=== PATIENT | male | born 1940 | race Caucasian/White ===

== ENCOUNTER 2021-10-28 15:39 | Inpatient (IN) | payer MEDICARE, BC ==
[~2021-10-28 15:39] MED LIST: Iopamidol 370 76% 100 ML VIAL ONE
[2021-10-28] MEDS ORDERED: Heparin 10,000 UNITS/ 10 ML VIAL ONE ×2 (15:52→15:53)
[2021-10-28 15:56] LABS: #Eosinphils 0.2 thou/uL (0.0-0.7); #Lymphocytes 3.6 thou/uL (1.20-3.40); #Monocytes 0.7 thou/uL (0.11-0.59); #Neutrophils 4.5 thou/uL (1.40-6.50); %Basophils 0.5 % (0.0-1.0); %Lymphocytes 39.7 % (21.0-51.0); %Monocytes 7.9 % (0.0-10.0); %Neutrophils 49.9 % (42.0-75.0); Hemoglobin 15.1 g/dL (14.0-18.0); Mean Corpuscular Hemoglobin 34.5 pg (27.0-31.0); Mean Platelet Volume 7.4 fL (7.4-10.4); Platelet Count 174 thou/uL (130-400); RBC Distribution Width 12.8 % (11.5-14.5); Red Blood Cell (RBC) Count 4.37 mill/uL (4.70-6.10); White Blood Cell (WBC) Count 8.9 thou/uL (4.8-10.8)
[2021-10-28] MEDS ORDERED: Aspirin 300 MG Suppository ONE (16:00)
[2021-10-28 16:09] LABS: Bacteria/HPF None Seen HPF (None Seen); Bilirubin Negative (Negative); Blood, Urine 1+ (Negative); Clarity Clear (Clear); Glucose, Urine (Dipstick) 100 mg/dL (Negative); Ketone, Urine Negative (Negative); Leukocyte Negative Leu/uL (Negative); Nitrite Negative (Negative); Protein, Urine (Dipstick) 100 mg/dL (Neg-Trace); Specific Gravity, Urine 1.018 (1.002-1.036); Squamous Epithelial 0-3 HPF (0-3); Urobilinogen 3 mg/dL (Less than 2); WBC/HPF 0-3 HPF (0-3); pH, Urine 6.5 (5.0-9.0)
[2021-10-28 16:18] LABS: ALT (SGPT) 80 U/L (8-55); AST (SGOT) 99 U/L (5-34); Albumin 3.9 g/dL (3.4-4.8); Alkaline Phosphatase 88 U/L (40-110); Anion Gap 17 mmol/L (10-20); BUN (Urea Nitrogen) 20 mg/dL (8.4-25.7); Bilirubin, Total 1.2 mg/dL (0.2-1.2); Calc. Creatinine Clearance 0 mL/min (70-130); Calcium 8.1 mg/dL (7.8-10.44); Carbon Dioxide 18 mmol/L (23-31); Chloride 108 mmol/L (98-107); Globulin 3.1 g/dL (2.4-3.5); Glucose 237 mg/dL (83-110); Lipase 24 U/L (8-78); Potassium 3.2 mmol/L (3.5-5.1); Sodium 140 mmol/L (136-145)
[2021-10-28] MEDS ORDERED: Ondansetron PF 4 MG/2 ML Vial ONE (16:19)
[2021-10-28] MEDS ORDERED: Adenosine 6 MG/2 ML VIAL ONE (16:19)
[2021-10-28] MEDS ORDERED: Nitroglycerin 100MG/250ML BOT 0 ML ONE (16:20)
[2021-10-28] MEDS ORDERED: Nitroglycerin 100MG/250ML BOT 250 ML ONE (16:40)
[2021-10-28] MEDS ORDERED: Furosemide 40 MG/4 ML VIAL ONE (16:40)
[2021-10-28] MEDS ORDERED: Electrolyte Replacement Protocol 1 EACH FS PRN (16:44)
[2021-10-28] MEDS ORDERED: Ventilator Sedation Protocol 1 EACH FS ONE (16:44)
[2021-10-28] MEDS ORDERED: Nitroglycerin 2% Ointment 1 INCH/1 GM Packet ONE (17:04)
[2021-10-28] MEDS ORDERED: Midazolam HCl 2 mg/2 ml Vial ONE (17:12)
[2021-10-28 17:26] LABS: Actual Bicarbonate (HCO3a) 20.6 mEq/L (22-28); Base Excess (BEa) -4.7 mEq/L (-2.0 to +3.0); CO2 Tension 39.1 mmHg (35.0-45.0); Calcium, Ionized (arterial) 1.03 mmol/L (1.12-1.30); Hemoglobin (Hb) 15.6 g/dL (14.0-18.0); O2 Tension (PaO2), arterial 96.5 mmHg (> 60.0); Potassium - ABG Lab 2.99 mmol/L (3.70-5.30); pH, Arterial 7.34 (7.35-7.45)
[2021-10-28] MEDS ORDERED: DISCONTINUE PREVIOUS NARCOTIC PAIN MEDICATIONS AND BENZODIAZEPINES FS SCH (17:30)
[2021-10-28] MEDS ORDERED: Potassium Chloride 20 MEQ TAB PO SCH (17:30)
[2021-10-28] MEDS ORDERED: Propofol BOLUS 1,000 MG/100 ML VIAL IV PRN (17:30)
[2021-10-28] MEDS ORDERED: Fentanyl BOLUS 250 ML IVPB PRN (17:30)
[2021-10-28] MEDS ORDERED: Morphine 4 MG/ML VIAL SLOW IVP PRN (17:30)
[2021-10-28] MEDS: Propofol 1,000 MG/100 ML VIAL IV PRN ×2 (17:30→22:27)
[2021-10-28 17:33] LABS: ALV-art Gradient 211.125 mmHg (0-20); Puncture Site Arterial Line
[2021-10-28] MEDS: Lorazepam 2 MG/ML VIAL SLOW IVP PRN ×3 (18:13→20:43)
[2021-10-28 18:26] LABS: Potassium 2.9 mmol/L (3.5-5.1)
[2021-10-28] MEDS: Sodium Chloride 0.9% 1,000 ML IV SCH (18:30)
[2021-10-28] MEDS: fentaNYL Citrate-0.9 % NaCl/PF 100 ML IV SCH (18:42)
[2021-10-28 19:00] LABS: Troponin I 0.069 ng/mL (< 0.028)
[2021-10-28] MEDS ORDERED: DO NOT USE PRE-EXISTING LYTE PROTOCOL FS SCH (19:30)
[2021-10-28] MEDS ORDERED: Heparin 25,000 units/D5W 500 ML IV SCH (20:00)
[2021-10-28] MEDS ORDERED: Amiodarone In Dextrose 200 ML IVPB SCH (20:00)
[2021-10-28] MEDS ORDERED: Heparin 10,000 UNITS/ 10 ML VIAL SLOW IVP SCH (20:00)
[2021-10-28 20:31] LABS: #Monocytes 1.1 thou/uL (0.11-0.59); #Neutrophils 13.3 thou/uL (1.40-6.50); %Basophils 0.1 % (0.0-1.0); %Eosinophils 0.1 % (0.0-10.0); %Lymphocytes 6.4 % (21.0-51.0); %Neutrophils 86.4 % (42.0-75.0); Hemoglobin 15.4 g/dL (14.0-18.0); Mean Corpuscular HGB CONC 34.4 g/dL (32.0-36.0); Mean Corpuscular Hemoglobin 34.2 pg (27.0-31.0); Mean Corpuscular Volume 99.5 fL (78.0-98.0); Mean Platelet Volume 7.1 fL (7.4-10.4); Platelet Count 169 thou/uL (130-400); RBC Distribution Width 12.7 % (11.5-14.5); Red Blood Cell (RBC) Count 4.51 mill/uL (4.70-6.10); White Blood Cell (WBC) Count 15.3 thou/uL (4.8-10.8)
[2021-10-28 20:39] LABS: INR-International Normal Ratio 1.1; Prothrombin Time 14.6 sec (12.0-14.7)
[2021-10-28] MEDS: Famotidine/PF 20 mg/2ml Vial SLOW IVP SCH (20:41)
[2021-10-28] MEDS: Vecuronium 10 MG VIAL IV PRN (20:43)
[2021-10-28 20:51] LABS: Anion Gap 13 mmol/L (10-20); BUN (Urea Nitrogen) 20 mg/dL (8.4-25.7); Calc. Creatinine Clearance 52 mL/min (70-130); Calcium 8.2 mg/dL (7.8-10.44); Carbon Dioxide 23 mmol/L (23-31); Chloride 106 mmol/L (98-107); Glucose 221 mg/dL (83-110); Magnesium 1.9 mg/dL (1.6-2.6); Potassium 3.3 mmol/L (3.5-5.1); Sodium 139 mmol/L (136-145)
[2021-10-28 20:54] LABS: PTT 164.4 sec (22.9-36.1)
[2021-10-28] MEDS: Nitroglycerin 2% Ointment 1 INCH/1 GM Packet TOP SCH (21:34)
[2021-10-28] MEDS: Potassium Chloride 20 MEQ in Premix Bag 1 BAG IVPB SCH ×2 (21:46→22:23)
[2021-10-28 22:01] LABS: Troponin I 0.475 ng/mL (< 0.028)
[2021-10-29 01:09] LABS: Bilirubin Negative (Negative); Blood, Urine Negative (Negative); Clarity Clear (Clear); Glucose, Urine (Dipstick) Normal (Negative); Ketone, Urine Negative (Negative); Leukocyte Negative Leu/uL (Negative); Nitrite Negative (Negative); Protein, Urine (Dipstick) Negative (Neg-Trace); Specific Gravity, Urine 1.018 (1.002-1.036); Squamous Epithelial None Seen HPF (0-3); Urobilinogen Normal mg/dL (Less than 2); pH, Urine 5.5 (5.0-9.0)
[2021-10-29 01:11] LABS: Bacteria/HPF None Seen HPF (None Seen); RBC/HPF 0-3 HPF (0-3); WBC/HPF 0-3 HPF (0-3)
[2021-10-29 01:31] LABS: INR-International Normal Ratio 1.1; PTT 52.7 sec (22.9-36.1)
[2021-10-29 01:35] LABS: Troponin I 0.598 ng/mL (< 0.028)
[2021-10-29 01:38] LABS: #Lymphocytes 1.2 thou/uL (1.20-3.40); #Monocytes 0.7 thou/uL (0.11-0.59); #Neutrophils 8.3 thou/uL (1.40-6.50); %Basophils 0.2 % (0.0-1.0); %Eosinophils 0.1 % (0.0-10.0); %Monocytes 6.4 % (0.0-10.0); %Neutrophils 81.3 % (42.0-75.0); Hemoglobin 14.5 g/dL (14.0-18.0); Mean Corpuscular HGB CONC 34.4 g/dL (32.0-36.0); Mean Corpuscular Hemoglobin 34.4 pg (27.0-31.0); Mean Corpuscular Volume 99.9 fL (78.0-98.0); Mean Platelet Volume 7.9 fL (7.4-10.4); Platelet Count 151 thou/uL (130-400); RBC Distribution Width 12.7 % (11.5-14.5); Red Blood Cell (RBC) Count 4.21 mill/uL (4.70-6.10); White Blood Cell (WBC) Count 10.1 thou/uL (4.8-10.8)
[2021-10-29 02:29] LABS: Anion Gap 15 mmol/L (10-20); BUN (Urea Nitrogen) 20 mg/dL (8.4-25.7); Calc. Creatinine Clearance 51 mL/min (70-130); Calcium 8.2 mg/dL (7.8-10.44); Carbon Dioxide 23 mmol/L (23-31); Chloride 106 mmol/L (98-107); Glucose 158 mg/dL (83-110); Phosphorus 2.6 mg/dL (2.3-4.7); Potassium 3.5 mmol/L (3.5-5.1); Sodium 140 mmol/L (136-145)
[2021-10-29] MEDS: Sodium Chloride 0.9% 1,000 ML IV SCH ×2 (04:30→18:23)
[2021-10-29] MEDS: Propofol 1,000 MG/100 ML VIAL IV PRN ×3 (04:33→19:22)
[2021-10-29] MEDS: Nitroglycerin 2% Ointment 1 INCH/1 GM Packet TOP SCH ×3 (05:01→22:14)
[2021-10-29] MEDS: Lorazepam 2 MG/ML VIAL SLOW IVP PRN ×3 (05:53→12:10)
[2021-10-29] MEDS: Vecuronium 10 MG VIAL IV PRN (05:53)
[2021-10-29] MEDS: fentaNYL Citrate-0.9 % NaCl/PF 100 ML IV SCH (06:15)
[2021-10-29 06:41] LABS: Actual Bicarbonate (HCO3a) 21.5 mEq/L (22-28); Base Excess (BEa) -2.5 mEq/L (-2.0 to +3.0); CO2 Tension 35.2 mmHg (35.0-45.0); Calcium, Ionized (arterial) 1.08 mmol/L (1.12-1.30); Carboxyhemoglobin (COHb) 0.6 gm% (0.0-3.0); Hemoglobin (Hb) 14.5 g/dL (14.0-18.0); O2 Tension (PaO2), arterial 80.7 mmHg (> 60.0); Potassium - ABG Lab 3.06 mmol/L (3.70-5.30)
[2021-10-29 06:50] LABS: Puncture Site Arterial Line
[2021-10-29 08:50] LABS: INR-International Normal Ratio 1.2; Prothrombin Time 15.2 sec (12.0-14.7)
[2021-10-29 08:51] LABS: PTT 96.3 sec (22.9-36.1)
[2021-10-29 09:06] LABS: Critical Call Chem Troponin I RESULT DECREASING
[2021-10-29 09:07] LABS: Anion Gap 13 mmol/L (10-20); BUN (Urea Nitrogen) 19 mg/dL (8.4-25.7); Calc. Creatinine Clearance 56 mL/min (70-130); Calcium 7.9 mg/dL (7.8-10.44); Carbon Dioxide 23 mmol/L (23-31); Chloride 106 mmol/L (98-107); Glucose 137 mg/dL (83-110); Magnesium 1.9 mg/dL (1.6-2.6); Phosphorus 4.1 mg/dL (2.3-4.7); Potassium 3.3 mmol/L (3.5-5.1); Sodium 139 mmol/L (136-145)
[2021-10-29 09:27] LABS: CKMB 8.1 ng/mL (0-6.6)
[2021-10-29] MEDS: Aspirin 81 mg Enteric Coated Tablet PO SCH (09:36)
[2021-10-29] MEDS ORDERED: Potassium Chloride 40 MEQ, Magnesium Sulfate 2 GM in Sodium Chloride 0.9% 250 ML 250 ML IVPB SCH (10:00)
[2021-10-29 10:27] LABS: #Eosinphils 0.1 thou/uL (0.0-0.7); #Lymphocytes 1.9 thou/uL (1.20-3.40); #Monocytes 0.8 thou/uL (0.11-0.59); #Neutrophils 6.2 thou/uL (1.40-6.50); %Basophils 0.4 % (0.0-1.0); %Eosinophils 0.8 % (0.0-10.0); %Lymphocytes 20.9 % (21.0-51.0); %Monocytes 9.4 % (0.0-10.0); %Neutrophils 68.6 % (42.0-75.0); Hemoglobin 14.5 g/dL (14.0-18.0); Mean Corpuscular HGB CONC 32.9 g/dL (32.0-36.0); Mean Platelet Volume 7.4 fL (7.4-10.4); Platelet Count 141 thou/uL (130-400); RBC Distribution Width 12.7 % (11.5-14.5); Red Blood Cell (RBC) Count 4.26 mill/uL (4.70-6.10)
[2021-10-29] MEDS: Famotidine/PF 20 mg/2ml Vial SLOW IVP SCH ×2 (10:40→20:33)
[2021-10-29 14:26] LABS: #Lymphocytes 0.9 thou/uL (1.20-3.40); #Monocytes 0.7 thou/uL (0.11-0.59); #Neutrophils 6.9 thou/uL (1.40-6.50); %Basophils 0.3 % (0.0-1.0); %Eosinophils 0.1 % (0.0-10.0); %Lymphocytes 10.1 % (21.0-51.0); %Monocytes 8.7 % (0.0-10.0); %Neutrophils 80.8 % (42.0-75.0); Hemoglobin 14.6 g/dL (14.0-18.0); Mean Corpuscular HGB CONC 33.2 g/dL (32.0-36.0); Mean Corpuscular Hemoglobin 34.4 pg (27.0-31.0); Mean Platelet Volume 7.7 fL (7.4-10.4); Platelet Count 128 thou/uL (130-400); RBC Distribution Width 12.6 % (11.5-14.5); Red Blood Cell (RBC) Count 4.26 mill/uL (4.70-6.10); White Blood Cell (WBC) Count 8.5 thou/uL (4.8-10.8)
[2021-10-29 14:34] LABS: INR-International Normal Ratio 1.1; Prothrombin Time 14.4 sec (12.0-14.7)
[2021-10-29 14:37] LABS: Anion Gap 13 mmol/L (10-20); BUN (Urea Nitrogen) 19 mg/dL (8.4-25.7); Calc. Creatinine Clearance 62 mL/min (70-130); Carbon Dioxide 20 mmol/L (23-31); Chloride 110 mmol/L (98-107); Glucose 124 mg/dL (83-110); Magnesium 2.5 mg/dL (1.6-2.6); Phosphorus 3.9 mg/dL (2.3-4.7); Potassium 4.1 mmol/L (3.5-5.1); Sodium 139 mmol/L (136-145)
[2021-10-29 14:43] LABS: PTT 126.2 sec (22.9-36.1)
[2021-10-29] MEDS ORDERED: Sodium Chloride 0.9% 500 ML IV SCH (17:15)
[2021-10-29 19:20] LABS: Anion Gap 13 mmol/L (10-20); BUN (Urea Nitrogen) 21 mg/dL (8.4-25.7); Calc. Creatinine Clearance 69 mL/min (70-130); Calcium 7.8 mg/dL (7.8-10.44); Carbon Dioxide 19 mmol/L (23-31); Chloride 112 mmol/L (98-107); Glucose 116 mg/dL (83-110); Potassium 3.9 mmol/L (3.5-5.1); Sodium 140 mmol/L (136-145)
[2021-10-29 20:18] LABS: INR-International Normal Ratio 1.2; Prothrombin Time 15.1 sec (12.0-14.7)
[2021-10-29 20:30] LABS: #Basophils 0.1 thou/uL (0.0-0.2); #Lymphocytes 0.9 thou/uL (1.20-3.40); #Monocytes 0.6 thou/uL (0.11-0.59); #Neutrophils 5.4 thou/uL (1.40-6.50); %Basophils 2.1 % (0.0-1.0); %Eosinophils 0.2 % (0.0-10.0); %Lymphocytes 12.4 % (21.0-51.0); %Monocytes 8.8 % (0.0-10.0); %Neutrophils 76.6 % (42.0-75.0); Hemoglobin 13.1 g/dL (14.0-18.0); Mean Corpuscular HGB CONC 34.4 g/dL (32.0-36.0); Mean Corpuscular Hemoglobin 34.4 pg (27.0-31.0); Mean Corpuscular Volume 99.8 fL (78.0-98.0); Mean Platelet Volume 7.4 fL (7.4-10.4); Platelet Count 116 thou/uL (130-400); RBC Distribution Width 12.6 % (11.5-14.5); Red Blood Cell (RBC) Count 3.81 mill/uL (4.70-6.10)
[2021-10-29 20:35] LABS: PTT 168.7 sec (22.9-36.1)
[2021-10-29 21:10] LABS: CKMB 9.3 ng/mL (0-6.6)
[2021-10-30] MEDS: Propofol 1,000 MG/100 ML VIAL IV PRN (03:13)
[2021-10-30] MEDS: fentaNYL Citrate-0.9 % NaCl/PF 100 ML IV SCH (03:14)
[2021-10-30 05:17] LABS: Anion Gap 12 mmol/L (10-20); BUN (Urea Nitrogen) 22 mg/dL (8.4-25.7); Calc. Creatinine Clearance 54 mL/min (70-130); Calcium 7.9 mg/dL (7.8-10.44); Carbon Dioxide 20 mmol/L (23-31); Chloride 110 mmol/L (98-107); Glucose 127 mg/dL (83-110); Potassium 3.4 mmol/L (3.5-5.1); Sodium 139 mmol/L (136-145)
[2021-10-30 06:02] LABS: #Lymphocytes 0.8 thou/uL (1.20-3.40); #Monocytes 0.6 thou/uL (0.11-0.59); #Neutrophils 6.1 thou/uL (1.40-6.50); %Basophils 0.1 % (0.0-1.0); %Eosinophils 0.3 % (0.0-10.0); %Lymphocytes 10.9 % (21.0-51.0); %Monocytes 8.4 % (0.0-10.0); %Neutrophils 80.4 % (42.0-75.0); Hemoglobin 13.5 g/dL (14.0-18.0); Mean Corpuscular HGB CONC 33.3 g/dL (32.0-36.0); Mean Corpuscular Hemoglobin 34.5 pg (27.0-31.0); Mean Platelet Volume 8.1 fL (7.4-10.4); Platelet Count 128 thou/uL (130-400); RBC Distribution Width 12.8 % (11.5-14.5); White Blood Cell (WBC) Count 7.5 thou/uL (4.8-10.8)
[2021-10-30] MEDS: Nitroglycerin 2% Ointment 1 INCH/1 GM Packet TOP SCH ×3 (06:29→22:18)
[2021-10-30] MEDS: Potassium Chloride 20 MEQ in Premix Bag 1 BAG IVPB SCH ×2 (06:30→08:58)
[2021-10-30 06:58] LABS: Actual Bicarbonate (HCO3a) 20.2 mEq/L (22-28); Base Excess (BEa) -4.2 mEq/L (-2.0 to +3.0); Carboxyhemoglobin (COHb) 0.7 gm% (0.0-3.0); Hemoglobin (Hb) 13.6 g/dL (14.0-18.0); O2 Tension (PaO2), arterial 88.6 mmHg (> 60.0); Potassium - ABG Lab 3.57 mmol/L (3.70-5.30); pH, Arterial 7.38 (7.35-7.45)
[2021-10-30 07:01] LABS: Puncture Site Arterial Line
[2021-10-30] MEDS: Carvedilol 3.125 MG TAB PO SCH ×2 (08:59→16:33)
[2021-10-30] MEDS: Sodium Chloride 0.9% 1,000 ML IV SCH ×2 (08:59→23:22)
[2021-10-30] MEDS: Famotidine/PF 20 mg/2ml Vial SLOW IVP SCH ×2 (08:59→21:55)
[2021-10-30] MEDS: Aspirin 81 mg Enteric Coated Tablet PO SCH (08:59)
[2021-10-30 09:24] LABS: SARS-CoV-2 NAA Rapid Test Not Detected (NotDetected)
[2021-10-30] MEDS: cefTRIAXone\\ROCEPHIN 2 GM in Sodium Chloride 0.9% 100 ML IVPB SCH (12:14)
[2021-10-30] MEDS: Acetaminophen 650 MG/20.3 ML UDCUP PER TUBE PRN (12:14)
[2021-10-30] MEDS: Atorvastatin Calcium 40 MG TAB PO SCH (21:55)
[2021-10-30] MEDS: Enoxaparin Sodium 40 MG/0.4 ML SYRINGE SC SCH (21:55)
[2021-10-31 04:16] LABS: #Lymphocytes 1.2 thou/uL (1.20-3.40); #Monocytes 0.7 thou/uL (0.11-0.59); #Neutrophils 5.2 thou/uL (1.40-6.50); %Basophils 0.2 % (0.0-1.0); %Eosinophils 0.3 % (0.0-10.0); %Lymphocytes 17.2 % (21.0-51.0); %Monocytes 9.3 % (0.0-10.0); Mean Corpuscular HGB CONC 33.7 g/dL (32.0-36.0); Mean Corpuscular Hemoglobin 34.5 pg (27.0-31.0); Mean Platelet Volume 8.1 fL (7.4-10.4); Platelet Count 114 thou/uL (130-400); RBC Distribution Width 12.9 % (11.5-14.5); Red Blood Cell (RBC) Count 3.49 mill/uL (4.70-6.10); White Blood Cell (WBC) Count 7.1 thou/uL (4.8-10.8)
[2021-10-31 04:28] LABS: Anion Gap 11 mmol/L (10-20); BUN (Urea Nitrogen) 33 mg/dL (8.4-25.7); Calc. Creatinine Clearance 42 mL/min (70-130); Carbon Dioxide 23 mmol/L (23-31); Chloride 108 mmol/L (98-107); Glucose 136 mg/dL (83-110); Potassium 4.1 mmol/L (3.5-5.1); Sodium 138 mmol/L (136-145)
[2021-10-31] MEDS: Nitroglycerin 2% Ointment 1 INCH/1 GM Packet TOP SCH ×3 (05:42→21:39)
[2021-10-31 07:43] LABS: Actual Bicarbonate (HCO3a) 19.3 mEq/L (22-28); Base Excess (BEa) -4.5 mEq/L (-2.0 to +3.0); CO2 Tension 31.7 mmHg (35.0-45.0); Calcium, Ionized (arterial) 1.12 mmol/L (1.12-1.30); Carboxyhemoglobin (COHb) 0.6 gm% (0.0-3.0); Hemoglobin (Hb) 12.5 g/dL (14.0-18.0); O2 Tension (PaO2), arterial 91.4 mmHg (> 60.0); Potassium - ABG Lab 3.82 mmol/L (3.70-5.30)
[2021-10-31 07:49] LABS: ALV-art Gradient 154.175 mmHg (0-20); Puncture Site RRA
[2021-10-31] MEDS: Aspirin 81 mg Enteric Coated Tablet PO SCH (08:41)
[2021-10-31] MEDS: Carvedilol 3.125 MG TAB PO SCH ×2 (08:43→08:50)
[2021-10-31] MEDS: Famotidine 20 MG TAB PER TUBE SCH (08:45)
[2021-10-31] MEDS: Furosemide 20 MG/2 ML VIAL SLOW IVP SCH (08:52)
[2021-10-31] MEDS ORDERED: Famotidine/PF 20 mg/2ml Vial SLOW IVP SCH (09:00)
[2021-10-31] MEDS: hydrALAZINE 20 MG/ML VIAL SLOW IVP PRN (10:23)
[2021-10-31] MEDS ORDERED: Potassium Chloride 20 MEQ TAB PO SCH (12:00)
[2021-10-31] MEDS: cefTRIAXone\\ROCEPHIN 2 GM in Sodium Chloride 0.9% 100 ML IVPB SCH (12:08)
[2021-10-31] MEDS: Sodium Chloride 0.9% 1,000 ML IV SCH (12:10)
[2021-10-31] MEDS ORDERED: Potassium Bicarbonate/Cit Ac 20 MEQ TAB PO SCH (13:00)
[2021-10-31] MEDS: fentaNYL Citrate-0.9 % NaCl/PF 100 ML IV SCH (13:58)
[2021-10-31] MEDS: Lorazepam 2 MG/ML VIAL SLOW IVP PRN (18:19)
[2021-10-31] MEDS ORDERED: Sodium Bicarbonate Tab 325 MG TAB PER TUBE PRN (19:30)
[2021-10-31] MEDS ORDERED: Pancrelipase DR 12,000 1 CAP FS PRN (19:30)
[2021-10-31] MEDS: Atorvastatin Calcium 40 MG TAB PO SCH (20:00)
[2021-10-31] MEDS: Enoxaparin Sodium 40 MG/0.4 ML SYRINGE SC SCH (20:00)
[2021-11-01] MEDS ORDERED: Sodium Chloride 0.9% 500 ML IVPB SCH (01:15)
[2021-11-01] MEDS: Sodium Chloride 0.9% 1,000 ML IV SCH (03:30)
[2021-11-01 04:26] LABS: Anion Gap 12 mmol/L (10-20); BUN (Urea Nitrogen) 34 mg/dL (8.4-25.7); Calc. Creatinine Clearance 55 mL/min (70-130); Calcium 7.9 mg/dL (7.8-10.44); Carbon Dioxide 21 mmol/L (23-31); Chloride 113 mmol/L (98-107); Glucose 111 mg/dL (83-110); Sodium 142 mmol/L (136-145)
[2021-11-01 06:04] LABS: #Eosinphils 0.1 thou/uL (0.0-0.7); #Lymphocytes 1.2 thou/uL (1.20-3.40); #Monocytes 0.6 thou/uL (0.11-0.59); #Neutrophils 4.7 thou/uL (1.40-6.50); %Basophils 0.2 % (0.0-1.0); %Lymphocytes 18.3 % (21.0-51.0); %Monocytes 8.6 % (0.0-10.0); %Neutrophils 71.9 % (42.0-75.0); Hemoglobin 11.7 g/dL (14.0-18.0); MDiff Complete? YES; Macrocytosis SLIGHT = 6-15 cells (100X) (0-5/hpf); Mean Corpuscular HGB CONC 34.4 g/dL (32.0-36.0); Mean Corpuscular Hemoglobin 35.9 pg (27.0-31.0); Mean Platelet Volume 8.2 fL (7.4-10.4); Platelet Count 99 thou/uL (130-400); Platelet Morphology Comment Appears Decreased; RBC Distribution Width 12.5 % (11.5-14.5); Red Blood Cell (RBC) Count 3.26 mill/uL (4.70-6.10); White Blood Cell (WBC) Count 6.5 thou/uL (4.8-10.8)
[2021-11-01] MEDS: Nitroglycerin 2% Ointment 1 INCH/1 GM Packet TOP SCH ×3 (06:28→21:21)
[2021-11-01 07:20] LABS: Actual Bicarbonate (HCO3a) 18.4 mEq/L (22-28); Base Excess (BEa) -5.6 mEq/L (-2.0 to +3.0); Calcium, Ionized (arterial) 1.16 mmol/L (1.12-1.30); Carboxyhemoglobin (COHb) 0.8 gm% (0.0-3.0); Hemoglobin (Hb) 14.4 g/dL (14.0-18.0); O2 Tension (PaO2), arterial 87.1 mmHg (> 60.0); Potassium - ABG Lab 3.98 mmol/L (3.70-5.30); pH, Arterial 7.38 (7.35-7.45)
[2021-11-01 07:28] LABS: Puncture Site RBA
[2021-11-01] MEDS: Famotidine 20 MG TAB PER TUBE SCH (09:58)
[2021-11-01] MEDS: Furosemide 20 MG/2 ML VIAL SLOW IVP SCH (09:58)
[2021-11-01] MEDS: Aspirin 81 mg Enteric Coated Tablet PO SCH (09:58)
[2021-11-01] MEDS ORDERED: Lisinopril 5 MG TAB PO SCH (10:45)
[2021-11-01] MEDS: cefTRIAXone\\ROCEPHIN 2 GM in Sodium Chloride 0.9% 100 ML IVPB SCH (11:17)
[2021-11-01] MEDS ORDERED: Furosemide 40 MG/4 ML VIAL IVP SCH (14:01)
[2021-11-01] MEDS ORDERED: Sodium Chloride 0.9% 1,000 ML IV SCH (14:03)
[2021-11-01] MEDS: fentaNYL Citrate-0.9 % NaCl/PF 100 ML IV SCH (17:04)
[2021-11-01] MEDS: Acetaminophen 650 MG/20.3 ML UDCUP PER TUBE PRN (20:20)
[2021-11-01] MEDS: Enoxaparin Sodium 40 MG/0.4 ML SYRINGE SC SCH (20:21)
[2021-11-01] MEDS: Lisinopril 5 MG TAB PO SCH (20:21)
[2021-11-01] MEDS: Atorvastatin Calcium 40 MG TAB PO SCH (20:21)
[2021-11-01] MEDS: Lorazepam 2 MG/ML VIAL SLOW IVP PRN (20:29)
[2021-11-02 04:28] LABS: #Lymphocytes 1.2 thou/uL (1.20-3.40); #Monocytes 0.9 thou/uL (0.11-0.59); #Neutrophils 4.1 thou/uL (1.40-6.50); %Basophils 0.1 % (0.0-1.0); %Eosinophils 0.8 % (0.0-10.0); %Lymphocytes 19.6 % (21.0-51.0); %Monocytes 14.5 % (0.0-10.0); Hemoglobin 11.3 g/dL (14.0-18.0); Mean Corpuscular HGB CONC 33.5 g/dL (32.0-36.0); Mean Corpuscular Hemoglobin 34.9 pg (27.0-31.0); Mean Platelet Volume 8.2 fL (7.4-10.4); Platelet Count 126 thou/uL (130-400); RBC Distribution Width 12.2 % (11.5-14.5); Red Blood Cell (RBC) Count 3.23 mill/uL (4.70-6.10); White Blood Cell (WBC) Count 6.3 thou/uL (4.8-10.8)
[2021-11-02 04:50] LABS: Anion Gap 12 mmol/L (10-20); BUN (Urea Nitrogen) 34 mg/dL (8.4-25.7); Calc. Creatinine Clearance 47 mL/min (70-130); Calcium 8.3 mg/dL (7.8-10.44); Carbon Dioxide 24 mmol/L (23-31); Chloride 110 mmol/L (98-107); Glucose 113 mg/dL (83-110); Potassium 3.8 mmol/L (3.5-5.1); Sodium 142 mmol/L (136-145)
[2021-11-02] MEDS: Nitroglycerin 2% Ointment 1 INCH/1 GM Packet TOP SCH ×3 (05:28→22:14)
[2021-11-02] MEDS: fentaNYL Citrate-0.9 % NaCl/PF 100 ML IV SCH (05:35)
[2021-11-02 07:39] LABS: Actual Bicarbonate (HCO3a) 24.4 mEq/L (22-28); Base Excess (BEa) -0.5 mEq/L (-2.0 to +3.0); CO2 Tension 40.8 mmHg (35.0-45.0); Calcium, Ionized (arterial) 1.13 mmol/L (1.12-1.30); Carboxyhemoglobin (COHb) 0.2 gm% (0.0-3.0); Hemoglobin (Hb) 11.6 g/dL (14.0-18.0); O2 Tension (PaO2), arterial 90.1 mmHg (> 60.0); Potassium - ABG Lab 3.74 mmol/L (3.70-5.30); pH, Arterial 7.39 (7.35-7.45)
[2021-11-02 08:01] LABS: Puncture Site RRA
[2021-11-02] MEDS: Famotidine 20 MG TAB PER TUBE SCH (08:23)
[2021-11-02] MEDS: Lisinopril 5 MG TAB PO SCH ×2 (08:24→21:50)
[2021-11-02] MEDS: Aspirin 81 mg Enteric Coated Tablet PO SCH (08:24)
[2021-11-02] MEDS: Furosemide 20 MG/2 ML VIAL SLOW IVP SCH (09:36)
[2021-11-02] MEDS: hydrALAZINE 20 MG/ML VIAL SLOW IVP PRN (09:36)
[2021-11-02] MEDS: cefTRIAXone\\ROCEPHIN 2 GM in Sodium Chloride 0.9% 100 ML IVPB SCH (12:35)
[2021-11-02] MEDS: Haloperidol Lactate 5 MG/ML VIAL IM SCH ×3 (14:22→21:50)
[2021-11-02] MEDS ORDERED: fentaNYL Citrate-0.9 % NaCl/PF 100 ML IV SCH (15:00)
[2021-11-02] MEDS: Enoxaparin Sodium 40 MG/0.4 ML SYRINGE SC SCH (21:50)
[2021-11-02] MEDS: Atorvastatin Calcium 40 MG TAB PO SCH (21:50)
[2021-11-03] MEDS: Haloperidol Lactate 5 MG/ML VIAL IM SCH ×6 (01:21→20:00)
[2021-11-03] MEDS: Nitroglycerin 2% Ointment 1 INCH/1 GM Packet TOP SCH ×3 (05:30→21:39)
[2021-11-03] MEDS: hydrALAZINE 20 MG/ML VIAL SLOW IVP PRN ×2 (07:15→13:51)
[2021-11-03] MEDS: Famotidine 20 MG TAB PER TUBE SCH (08:05)
[2021-11-03] MEDS: Lisinopril 5 MG TAB PO SCH ×2 (08:05→19:56)
[2021-11-03] MEDS ORDERED: Propofol 1,000 MG/100 ML VIAL IV ONE (08:19)
[2021-11-03] MEDS ORDERED: Propofol 1,000 MG/100 ML VIAL IV PRN (08:45)
[2021-11-03] MEDS ORDERED: Nitroglycerin 2% Ointment 1 INCH/1 GM Packet TOP SCH (09:00)
[2021-11-03] MEDS: Furosemide 20 MG/2 ML VIAL SLOW IVP SCH (09:27)
[2021-11-03] MEDS: Aspirin Chewable 81 MG TAB PO SCH (09:43)
[2021-11-03] MEDS: Aspirin 81 mg Enteric Coated Tablet PO SCH (09:45)
[2021-11-03] MEDS: Acetaminophen 650 MG/20.3 ML UDCUP PER TUBE PRN (10:36)
[2021-11-03] MEDS ORDERED: Acetaminophen 650 MG/20.3 ML UDCUP PO SCH (10:45)
[2021-11-03 12:00] LABS: Anion Gap 14 mmol/L (10-20); BUN (Urea Nitrogen) 30 mg/dL (8.4-25.7); Calc. Creatinine Clearance 65 mL/min (70-130); Calcium 8.4 mg/dL (7.8-10.44); Carbon Dioxide 22 mmol/L (23-31); Chloride 111 mmol/L (98-107); Glucose 147 mg/dL (83-110); Potassium 3.9 mmol/L (3.5-5.1); Sodium 143 mmol/L (136-145)
[2021-11-03] MEDS: cefTRIAXone\\ROCEPHIN 2 GM in Sodium Chloride 0.9% 100 ML IVPB SCH (13:50)
[2021-11-03] MEDS ORDERED: Morphine 2 MG/ML VIAL SLOW IVP SCH (15:15)
[2021-11-03] MEDS ORDERED: Morphine 2 MG/ML VIAL SLOW IVP PRN (15:30)
[2021-11-03] MEDS ORDERED: Morphine 4 MG/ML VIAL SLOW IVP SCH (15:30)
[2021-11-03] MEDS ORDERED: Labetalol HCl 100 MG/20 ML VIAL SLOW IVP SCH (16:15)
[2021-11-03] MEDS: Carvedilol 3.125 MG TAB PO SCH (16:20)
[2021-11-03] MEDS: Morphine 2 MG/ML VIAL SLOW IVP PRN ×2 (17:26→21:39)
[2021-11-03] MEDS: Atorvastatin Calcium 40 MG TAB PO SCH (19:55)
[2021-11-03] MEDS: Enoxaparin Sodium 40 MG/0.4 ML SYRINGE SC SCH (20:00)
[2021-11-04] MEDS: Haloperidol Lactate 5 MG/ML VIAL IM SCH ×3 (00:45→09:00)
[2021-11-04] MEDS: Morphine 2 MG/ML VIAL SLOW IVP PRN (03:10)
[2021-11-04 04:23] LABS: Anion Gap 16 mmol/L (10-20); BUN (Urea Nitrogen) 34 mg/dL (8.4-25.7); Calc. Creatinine Clearance 73 mL/min (70-130); Calcium 8.4 mg/dL (7.8-10.44); Carbon Dioxide 20 mmol/L (23-31); Chloride 112 mmol/L (98-107); Glucose 133 mg/dL (83-110); Magnesium 2.3 mg/dL (1.6-2.6); Sodium 144 mmol/L (136-145)
[2021-11-04] MEDS: Nitroglycerin 2% Ointment 1 INCH/1 GM Packet TOP SCH ×3 (05:23→21:05)
[2021-11-04] MEDS: Aspirin Chewable 81 MG TAB PO SCH (08:45)
[2021-11-04] MEDS: Famotidine 20 MG TAB PER TUBE SCH (08:45)
[2021-11-04] MEDS: Carvedilol 3.125 MG TAB PO SCH ×2 (08:45→17:00)
[2021-11-04] MEDS: cefTRIAXone\\ROCEPHIN 2 GM in Sodium Chloride 0.9% 100 ML IVPB SCH (11:55)
[2021-11-04] MEDS: Dexmedetomidine 1,000 MCG in Sodium Chloride 0.9% 250 ML 240 ML IVPB SCH ×2 (15:16→22:04)
[2021-11-04] MEDS ORDERED: Sterile Water 10 ML VIAL FS PRN (19:30)
[2021-11-04] MEDS: Atorvastatin Calcium 40 MG TAB PO SCH (20:06)
[2021-11-04] MEDS: Enoxaparin Sodium 40 MG/0.4 ML SYRINGE SC SCH (20:30)
[2021-11-04] MEDS ORDERED: Ziprasidone 20 MG VIAL IM PRN (21:00)
[2021-11-05] MEDS: Dexmedetomidine 1,000 MCG in Sodium Chloride 0.9% 250 ML 240 ML IVPB SCH ×3 (04:44→17:46)
[2021-11-05] MEDS: Nitroglycerin 2% Ointment 1 INCH/1 GM Packet TOP SCH ×3 (05:22→21:04)
[2021-11-05 07:29] LABS: Anion Gap 15 mmol/L (10-20); BUN (Urea Nitrogen) 36 mg/dL (8.4-25.7); Calc. Creatinine Clearance 71 mL/min (70-130); Calcium 8.4 mg/dL (7.8-10.44); Carbon Dioxide 20 mmol/L (23-31); Chloride 116 mmol/L (98-107); Glucose 121 mg/dL (83-110); Iron 62 ug/dL (65-175); Iron Binding Capacity, Total 156 mcg/dL (261-462); Potassium 4.4 mmol/L (3.5-5.1); Sodium 147 mmol/L (136-145)
[2021-11-05 07:30] LABS: Iron 63 ug/dL (65-175); Iron Binding Capacity, Total 155 mcg/dL (261-462)
[2021-11-05] MEDS ORDERED: Enalaprilat Dihydrate 1.25 MG/ML VIAL SLOW IVP SCH (08:06)
[2021-11-05] MEDS: Dextrose 5% in Water 1,000 ML IV SCH ×2 (08:36→21:03)
[2021-11-05] MEDS: Famotidine 20 MG TAB PER TUBE SCH (08:36)
[2021-11-05] MEDS: Carvedilol 3.125 MG TAB PO SCH ×2 (08:36→17:23)
[2021-11-05] MEDS: Aspirin Chewable 81 MG TAB PO SCH (08:36)
[2021-11-05] MEDS: Valproate Sodium 250 mg/5 ml UD Cup PER TUBE SCH ×3 (08:37→21:00)
[2021-11-05] MEDS ORDERED: Folic Acid/Vit B Comp W-C PO SCH (13:45)
[2021-11-05] MEDS ORDERED: Amlodipine 10 MG TAB PER TUBE SCH (13:45)
[2021-11-05] MEDS: Enalaprilat Dihydrate 1.25 MG/ML VIAL SLOW IVP SCH ×2 (14:11→20:58)
[2021-11-05] MEDS: Enoxaparin Sodium 40 MG/0.4 ML SYRINGE SC SCH (20:59)
[2021-11-05] MEDS: Atorvastatin Calcium 40 MG TAB PO SCH (20:59)
[2021-11-05] MEDS: hydrALAZINE 20 MG/ML VIAL SLOW IVP PRN (22:30)
[2021-11-06] MEDS: hydrALAZINE 20 MG/ML VIAL SLOW IVP PRN ×3 (01:44→19:37)
[2021-11-06] MEDS: Enalaprilat Dihydrate 1.25 MG/ML VIAL SLOW IVP SCH ×4 (02:40→20:27)
[2021-11-06] MEDS: Dexmedetomidine 1,000 MCG in Sodium Chloride 0.9% 250 ML 240 ML IVPB SCH ×2 (05:14→20:25)
[2021-11-06] MEDS: Nitroglycerin 2% Ointment 1 INCH/1 GM Packet TOP SCH ×3 (05:15→21:34)
[2021-11-06] MEDS: Folic Acid/Vit B Comp W-C PO SCH (09:50)
[2021-11-06] MEDS: Valproate Sodium 250 mg/5 ml UD Cup PER TUBE SCH ×3 (09:50→20:26)
[2021-11-06] MEDS: Amlodipine 10 MG TAB PER TUBE SCH (09:50)
[2021-11-06] MEDS: Aspirin Chewable 81 MG TAB PO SCH (09:50)
[2021-11-06] MEDS: Famotidine 20 MG TAB PER TUBE SCH (09:50)
[2021-11-06] MEDS: Carvedilol 3.125 MG TAB PO SCH ×2 (09:50→15:39)
[2021-11-06 11:22] LABS: #Lymphocytes 1.2 thou/uL (1.20-3.40); #Neutrophils 6.4 thou/uL (1.40-6.50); %Basophils 0.1 % (0.0-1.0); %Eosinophils 0.5 % (0.0-10.0); %Lymphocytes 13.8 % (21.0-51.0); %Monocytes 11.1 % (0.0-10.0); %Neutrophils 74.4 % (42.0-75.0); Hemoglobin 12.1 g/dL (14.0-18.0); Mean Corpuscular HGB CONC 34.5 g/dL (32.0-36.0); Mean Corpuscular Hemoglobin 35.7 pg (27.0-31.0); Mean Platelet Volume 7.4 fL (7.4-10.4); Platelet Count 242 thou/uL (130-400); RBC Distribution Width 12.3 % (11.5-14.5); Red Blood Cell (RBC) Count 3.38 mill/uL (4.70-6.10); White Blood Cell (WBC) Count 8.6 thou/uL (4.8-10.8)
[2021-11-06 11:57] LABS: Anion Gap 12 mmol/L (10-20); BUN (Urea Nitrogen) 28 mg/dL (8.4-25.7); Calc. Creatinine Clearance 72 mL/min (70-130); Calcium 8.1 mg/dL (7.8-10.44); Carbon Dioxide 21 mmol/L (23-31); Chloride 113 mmol/L (98-107); Glucose 155 mg/dL (83-110); Potassium 3.5 mmol/L (3.5-5.1); Sodium 142 mmol/L (136-145)
[2021-11-06] MEDS ORDERED: Potassium Chloride 20 MEQ TAB PO SCH (12:15)
[2021-11-06] MEDS: Dextrose 5% in Water 1,000 ML IV SCH (15:02)
[2021-11-06] MEDS: Enoxaparin Sodium 40 MG/0.4 ML SYRINGE SC SCH (20:26)
[2021-11-06] MEDS: Atorvastatin Calcium 40 MG TAB PO SCH (20:26)
[2021-11-07] MEDS: Dextrose 5% in Water 1,000 ML IV SCH (00:22)
[2021-11-07] MEDS: Enalaprilat Dihydrate 1.25 MG/ML VIAL SLOW IVP SCH ×5 (02:23→20:12)
[2021-11-07] MEDS: hydrALAZINE 20 MG/ML VIAL SLOW IVP PRN (06:06)
[2021-11-07] MEDS: Nitroglycerin 2% Ointment 1 INCH/1 GM Packet TOP SCH ×3 (06:10→21:49)
[2021-11-07] MEDS ORDERED: Carvedilol 3.125 MG TAB PO SCH (08:54)
[2021-11-07] MEDS ORDERED: Carvedilol 6.25 MG TAB PO SCH (09:15)
[2021-11-07] MEDS: Valproate Sodium 250 mg/5 ml UD Cup PER TUBE SCH ×3 (09:28→20:15)
[2021-11-07] MEDS: Aspirin Chewable 81 MG TAB PO SCH (09:29)
[2021-11-07] MEDS: Amlodipine 10 MG TAB PER TUBE SCH (09:29)
[2021-11-07] MEDS: Famotidine 20 MG TAB PER TUBE SCH (09:30)
[2021-11-07] MEDS: Folic Acid/Vit B Comp W-C PO SCH (09:30)
[2021-11-07] MEDS: Carvedilol 3.125 MG TAB PO SCH (09:31)
[2021-11-07] MEDS: Carvedilol 6.25 MG TAB PO SCH (18:30)
[2021-11-07] MEDS: Atorvastatin Calcium 40 MG TAB PO SCH (20:12)
[2021-11-07] MEDS: Enoxaparin Sodium 40 MG/0.4 ML SYRINGE SC SCH (20:13)
[2021-11-08] MEDS: Enalaprilat Dihydrate 1.25 MG/ML VIAL SLOW IVP SCH ×2 (02:38→08:54)
[2021-11-08] MEDS: hydrALAZINE 20 MG/ML VIAL SLOW IVP PRN ×2 (04:20→21:20)
[2021-11-08] MEDS: Nitroglycerin 2% Ointment 1 INCH/1 GM Packet TOP SCH ×3 (06:08→21:20)
[2021-11-08] MEDS: Carvedilol 6.25 MG TAB PO SCH ×2 (08:53→16:38)
[2021-11-08] MEDS: Amlodipine 10 MG TAB PER TUBE SCH (08:54)
[2021-11-08] MEDS: Folic Acid/Vit B Comp W-C PO SCH (08:54)
[2021-11-08] MEDS: Famotidine 20 MG TAB PER TUBE SCH (08:54)
[2021-11-08] MEDS: Aspirin Chewable 81 MG TAB PO SCH (08:54)
[2021-11-08] MEDS: Valproate Sodium 250 mg/5 ml UD Cup PER TUBE SCH (08:55)
[2021-11-08 09:11] LABS: Anion Gap 13 mmol/L (10-20); BUN (Urea Nitrogen) 28 mg/dL (8.4-25.7); Calc. Creatinine Clearance 60 mL/min (70-130); Calcium 7.7 mg/dL (7.8-10.44); Carbon Dioxide 24 mmol/L (23-31); Chloride 117 mmol/L (98-107); Glucose 178 mg/dL (83-110); Potassium 3.8 mmol/L (3.5-5.1); Sodium 150 mmol/L (136-145)
[2021-11-08] MEDS: Lidocaine 5% Patch TD SCH (18:37)
[2021-11-08] MEDS: Atorvastatin Calcium 40 MG TAB PO SCH (20:43)
[2021-11-08] MEDS: Enoxaparin Sodium 40 MG/0.4 ML SYRINGE SC SCH (20:43)
[2021-11-09 04:32] LABS: Anion Gap 11 mmol/L (10-20); BUN (Urea Nitrogen) 27 mg/dL (8.4-25.7); Calc. Creatinine Clearance 69 mL/min (70-130); Carbon Dioxide 24 mmol/L (23-31); Chloride 117 mmol/L (98-107); Glucose 137 mg/dL (83-110); Potassium 3.7 mmol/L (3.5-5.1); Sodium 148 mmol/L (136-145)
[2021-11-09] MEDS: Transdermal Patch Removal TOP SCH (06:32)
[2021-11-09] MEDS: Nitroglycerin 2% Ointment 1 INCH/1 GM Packet TOP SCH ×3 (06:32→20:55)
[2021-11-09] MEDS: hydrALAZINE 20 MG/ML VIAL SLOW IVP PRN (06:44)
[2021-11-09] MEDS: Folic Acid/Vit B Comp W-C PO SCH (09:27)
[2021-11-09] MEDS: Aspirin Chewable 81 MG TAB PO SCH (09:27)
[2021-11-09] MEDS: Famotidine 20 MG TAB PER TUBE SCH (09:27)
[2021-11-09] MEDS: Carvedilol 25 MG TAB PO SCH ×2 (09:27→18:36)
[2021-11-09] MEDS: Amiodarone 450 MG, Admixture Fee 1 EACH in Dextrose 5% in Water 250 ML IVPB SCH ×2 (13:45→22:05)
[2021-11-09] MEDS: Lidocaine 5% Patch TD SCH (18:36)
[2021-11-09] MEDS: Enoxaparin Sodium 40 MG/0.4 ML SYRINGE SC SCH (20:53)
[2021-11-09] MEDS: Sacubitril 49 MG/Valsartan 51 MG TABLET PO SCH (20:54)
[2021-11-09] MEDS: Atorvastatin Calcium 40 MG TAB PO SCH (20:54)
[2021-11-10] MEDS: Nitroglycerin 2% Ointment 1 INCH/1 GM Packet TOP SCH ×3 (05:11→21:33)
[2021-11-10] MEDS: Transdermal Patch Removal TOP SCH (05:12)
[2021-11-10] MEDS ORDERED: Spironolactone 25 MG TAB PO SCH (08:00)
[2021-11-10 09:07] LABS: Anion Gap 12 mmol/L (10-20); BUN (Urea Nitrogen) 19 mg/dL (8.4-25.7); Calc. Creatinine Clearance 76 mL/min (70-130); Calcium 7.9 mg/dL (7.8-10.44); Carbon Dioxide 21 mmol/L (23-31); Chloride 114 mmol/L (98-107); Glucose 131 mg/dL (83-110); Potassium 4.1 mmol/L (3.5-5.1); Sodium 143 mmol/L (136-145)
[2021-11-10] MEDS: Famotidine 20 MG TAB PER TUBE SCH (10:38)
[2021-11-10] MEDS: Amiodarone 200 MG TAB PO SCH ×3 (11:03→21:33)
[2021-11-10] MEDS: Folic Acid/Vit B Comp W-C PO SCH (11:03)
[2021-11-10] MEDS: Sacubitril 49 MG/Valsartan 51 MG TABLET PO SCH ×2 (11:03→21:33)
[2021-11-10] MEDS: Carvedilol 25 MG TAB PO SCH ×2 (11:09→17:07)
[2021-11-10] MEDS ORDERED: Amlodipine 5 MG TAB PO SCH (15:45)
[2021-11-10] MEDS: Lidocaine 5% Patch TD SCH (18:58)
[2021-11-10] MEDS ORDERED: Tamsulosin HCl 0.4 MG CAP PO SCH (21:00)
[2021-11-10] MEDS: Enoxaparin Sodium 40 MG/0.4 ML SYRINGE SC SCH (21:33)
[2021-11-10] MEDS: Atorvastatin Calcium 40 MG TAB PO SCH (21:33)
[2021-11-11 04:54] LABS: Anion Gap 11 mmol/L (10-20); BUN (Urea Nitrogen) 19 mg/dL (8.4-25.7); Calc. Creatinine Clearance 75 mL/min (70-130); Calcium 7.8 mg/dL (7.8-10.44); Carbon Dioxide 21 mmol/L (23-31); Chloride 113 mmol/L (98-107); Glucose 114 mg/dL (83-110); Potassium 4.1 mmol/L (3.5-5.1); Sodium 141 mmol/L (136-145)
[2021-11-11] MEDS: Nitroglycerin 2% Ointment 1 INCH/1 GM Packet TOP SCH ×3 (05:24→21:27)
[2021-11-11] MEDS: Transdermal Patch Removal TOP SCH (05:28)
[2021-11-11] MEDS ORDERED: Spironolactone 25 MG TAB PO SCH (08:00)
[2021-11-11 08:23] VITALS: BMI 27.9
[2021-11-11] MEDS ORDERED: Sacubitril 49 MG/Valsartan 51 MG TABLET PO SCH (09:00)
[2021-11-11] MEDS ORDERED: Amlodipine 5 MG TAB PO SCH (09:00)
[2021-11-11] MEDS ORDERED: Gentamicin 80 MG/100 ML BAG ONE (10:42)
[2021-11-11] MEDS ORDERED: CEFAZOLIN 1 GM VIAL ONE (10:42)
[2021-11-11] MEDS ORDERED: Lidocaine 1% (PF) 30 ML VIAL ONE (10:42)
[2021-11-11] MEDS ORDERED: Propofol 1,000 MG/100 ML VIAL IV ONE (11:22)
[2021-11-11] MEDS ORDERED: Meperidine HCl/PF 25 MG/ML VIAL ONE (11:22)
[2021-11-11] MEDS ORDERED: PHENYLEPHRINE-NS 100 MCG/ML 10 ML SYRINGE ONE (11:34)
[2021-11-11] MEDS ORDERED: Lidocaine 1% PF 5 ML VIAL ONE (11:34)
[2021-11-11] MEDS ORDERED: Iopamidol 370 76% 50 ML VIAL FS ONE (11:36)
[2021-11-11] MEDS: Amiodarone 200 MG TAB PO SCH ×3 (11:59→21:27)
[2021-11-11] MEDS: Carvedilol 25 MG TAB PO SCH (11:59)
[2021-11-11] MEDS: Aspirin Chewable 81 MG TAB PO SCH (14:48)
[2021-11-11] MEDS: Folic Acid/Vit B Comp W-C PO SCH (14:48)
[2021-11-11] MEDS: Famotidine 20 MG TAB PER TUBE SCH (14:48)
[2021-11-11] MEDS ORDERED: hydrALAZINE 20 MG/ML VIAL SLOW IVP PRN (15:55)
[2021-11-11] MEDS ORDERED: Acetaminophen 650 MG/20.3 ML UDCUP PER TUBE PRN (15:57)
[2021-11-11] MEDS ORDERED: Pancrelipase DR 12,000 1 CAP FS PRN (15:59)
[2021-11-11] MEDS ORDERED: Sodium Chloride 0.9% 1,000 ML IV SCH (16:00)
[2021-11-11] MEDS ORDERED: Electrolyte Replacement Protocol FS PRN (16:00)
[2021-11-11] MEDS ORDERED: Sodium Bicarbonate Tab 325 MG TAB PER TUBE PRN (16:00)
[2021-11-11] MEDS: Lidocaine 5% Patch TD SCH (16:58)
[2021-11-11] MEDS ORDERED: Carvedilol 25 MG TAB PO SCH (17:00)
[2021-11-11] MEDS ORDERED: Tamsulosin HCl 0.4 MG CAP PO SCH (21:00)
[2021-11-11] MEDS ORDERED: Atorvastatin Calcium 40 MG TAB PO SCH (21:00)
[2021-11-11] MEDS ORDERED: Cephalexin 250 MG CAP PO SCH (23:00)
[2021-11-11] MEDS ORDERED: Acetaminophen/Codeine 30-300mg Tablet PO PRN ×2 (23:00)
[2021-11-12] MEDS ORDERED: Transdermal Patch Removal TOP SCH (06:00)
[2021-11-12] MEDS: Nitroglycerin 2% Ointment 1 INCH/1 GM Packet TOP SCH ×2 (06:09→15:21)
[2021-11-12] MEDS ORDERED: Spironolactone 25 MG TAB PO SCH (08:00)
[2021-11-12] MEDS ORDERED: Aspirin Chewable 81 MG TAB PO SCH (09:00)
[2021-11-12] MEDS ORDERED: Hydrochlorothiazide 25 MG TAB PO SCH (09:00)
[2021-11-12] MEDS ORDERED: Famotidine 20 MG TAB PER TUBE SCH (09:00)
[2021-11-12] MEDS ORDERED: Sacubitril 49 MG/Valsartan 51 MG TABLET PO SCH ×2 (09:00)
[2021-11-12] MEDS ORDERED: Folic Acid/Vit B Comp W-C PO SCH (09:00)
[2021-11-12] MEDS: Carvedilol 25 MG TAB PO SCH ×2 (09:43→16:52)
[2021-11-12] MEDS: Cephalexin 250 MG CAP PO SCH ×2 (09:44→15:21)
[2021-11-12] MEDS: Amiodarone 200 MG TAB PO SCH (09:44)
[2021-11-12] MEDS ORDERED: Acetaminophen 650 MG/20.3 ML UDCUP PO PRN (14:45)
[2021-11-12 15:20] VITALS: TEMP 98.9
[2021-11-12] MEDS: Lidocaine 5% Patch TD SCH (16:54)
[2021-11-12 16:55] VITALS: BP 134/65
[2021-11-12] MEDS ORDERED: Enoxaparin Sodium 40 MG/0.4 ML SYRINGE SC SCH ×2 (21:00)
[2021-11-13] MEDS ORDERED: Amiodarone 200 MG TAB PO SCH (09:00)
[2021-11-13] MEDS ORDERED: Famotidine 20 MG TAB PO SCH (09:00)
== END 2021-11-12 20:54 | DRG 224 ==
LOC: ERS 15:39 → CCL 16:11 → CCU 17:31 → 2NO 11-09 14:57
PROVIDERS: ADMIT Internal Medicine Cardiovascular Disease; ATTEND Internal Medicine
PROC: 4A023N7 Measurement of Cardiac Sampling and Pressure, Left Heart, Percutaneous Approach (ICD-10-PCS; 2021-10-28)
PROC: B2151ZZ Fluoroscopy of Left Heart using Low Osmolar Contrast (ICD-10-PCS; 2021-10-28)
PROC: B2111ZZ Fluoroscopy of Multiple Coronary Arteries using Low Osmolar Contrast (ICD-10-PCS; 2021-10-28)
PROC: 0BH18EZ Insertion of Endotracheal Airway into Trachea, Via Natural or Artificial Opening Endoscopic (ICD-10-PCS; 2021-10-28)
PROC: 5A1955Z Respiratory Ventilation, Greater than 96 Consecutive Hours (ICD-10-PCS; 2021-10-28)
PROC: 0DH67UZ Insertion of Feeding Device into Stomach, Via Natural or Artificial Opening (ICD-10-PCS; 2021-10-28)
PROC: 3E0G76Z Introduction of Nutritional Substance into Upper GI, Via Natural or Artificial Opening (ICD-10-PCS; 2021-10-30)
PROC: 5A0935A Assistance with Respiratory Ventilation, Less than 24 Consecutive Hours, High Flow/Velocity Cannula (ICD-10-PCS; 2021-11-03)
PROC: 0JH639Z Insertion of Cardiac Resynchronization Defibrillator Pulse Generator into Chest Subcutaneous Tissue and Fascia, Percutaneous Approach (ICD-10-PCS; principal; 2021-11-11)
PROC: 02HK3KZ Insertion of Defibrillator Lead into Right Ventricle, Percutaneous Approach (ICD-10-PCS; 2021-11-11)
PROC: 02HL3KZ Insertion of Defibrillator Lead into Left Ventricle, Percutaneous Approach (ICD-10-PCS; 2021-11-11)
PROC: 02H63KZ Insertion of Defibrillator Lead into Right Atrium, Percutaneous Approach (ICD-10-PCS; 2021-11-11)
DX: I49.01 Ventricular fibrillation (principal); J96.00 Acute respiratory failure, unspecified whether with hypoxia or hypercapnia; G93.1 Anoxic brain damage, not elsewhere classified; F05 Delirium due to known physiological condition; N17.9 Acute kidney failure, unspecified; I50.20 Unspecified systolic (congestive) heart failure; E87.1 Hypo-osmolality and hyponatremia; I46.2 Cardiac arrest due to underlying cardiac condition; I47.2 Ventricular tachycardia; Z66 Do not resuscitate; Z51.5 Encounter for palliative care; I44.7 Left bundle-branch block, unspecified; I25.10 Atherosclerotic heart disease of native coronary artery without angina pectoris; E87.6 Hypokalemia; R68.0 Hypothermia, not associated with low environmental temperature; R45.1 Restlessness and agitation; I11.0 Hypertensive heart disease with heart failure; I25.5 Ischemic cardiomyopathy; R94.5 Abnormal results of liver function studies; G62.9 Polyneuropathy, unspecified; D53.9 Nutritional anemia, unspecified; F29 Unspecified psychosis not due to a substance or known physiological condition; F03.90 Unspecified dementia, unspecified severity, without behavioral disturbance, psychotic disturbance, mood disturbance, and anxiety; Z20.822 Contact with and (suspected) exposure to COVID-19; Z80.8 Family history of malignant neoplasm of other organs or systems; Z79.82 Long term (current) use of aspirin; Z78.1 Physical restraint status; R13.12 Dysphagia, oropharyngeal phase; R00.1 Bradycardia, unspecified; T44.4X5A Adverse effect of predominantly alpha-adrenoreceptor agonists, initial encounter; Y92.230 Patient room in hospital as the place of occurrence of the external cause
CPT/HCPCS: 31500; 33225; 33249; 36415; 36416; 36600; 51702; 71045; 74018; 74230; 80048; 80053; 81001; 81003; 81015; 82553; 82607; 82746; 82805; 83540; 83550; 83605; 83690; 83735; 84100; 84484; 85025; 85347; 85610; 85730; 93005; 93010; 93458; 94002; 94003; 96374; 96375; C1769; C1777; C1882; C1898; C1900; J0153; J0282; J0360; J0690; J0696; J1580; J1630; J1644; J1650; J1940; J2001; J2060; J2175; J2250; J2270; J2405; J2704; J3475; J3480; J3490; J7030; J7050; J7070; Q9967; S0028; U0002; U0003; U0005

== ENCOUNTER 2022-08-31 08:02 | Outpatient (CLI) | payer MEDICARE, BC | END 2022-08-31 08:03 | disposition home or self-care (01) | LOC: SCSRAD 08:02 | PROVIDERS: ATTEND Nurse Practitioner Family | DX: M54.50 Low back pain, unspecified (principal); M54.17 Radiculopathy, lumbosacral region; M47.817 Spondylosis without myelopathy or radiculopathy, lumbosacral region | CPT/HCPCS: 72100 ==

== ENCOUNTER 2022-10-07 13:22 | Outpatient (CLI) | payer MEDICARE, BC | END 2022-10-07 13:23 | disposition home or self-care (01) | LOC: MRI 13:22 | PROVIDERS: ATTEND Nurse Practitioner Family | DX: M43.06 Spondylolysis, lumbar region (principal); M43.17 Spondylolisthesis, lumbosacral region; M48.061 Spinal stenosis, lumbar region without neurogenic claudication; M48.07 Spinal stenosis, lumbosacral region | CPT/HCPCS: 72148 ==